=== PATIENT | female | born 1950 | race Caucasian/White ===

== ENCOUNTER 2019-03-18 10:42 | Emergency (ER) | payer MEDICARE, OTHER ==
[2019-03-18] MEDS ORDERED: ACETAMINOPHEN 325 MG TABLET PO ONE (11:09)
--- NOTE | 2019-03-18 11:13 | ER Document Report ---
ED Medical Screen (RME) - General Chief Complaint: Fall Injury Stated Complaint: FALL,LEFT HIP PAIN Time Seen by Provider: 03/18/19 11:05 TRAVEL OUTSIDE OF THE [place] IN LAST 30 DAYS: No - HPI Notes: 03/18/19 11:10 Patient is a 68-year-old female with a history of hypertension and hypothyroidism who presents complaining of left hip pain and left foot pain status post fall prior to arrival. Patient is not on any anticoagulation. Patient states that she was working outside when she tripped over her house and fell onto a wooden object with her left buttock then to the ground. Patient states that she did not hit her head or lose conscious. She has no other pains or discomfort aside from the foot and the left buttock/hip. Patient states that she has not been able to ambulate because of the pain. Denies drug allergies. Denies JACKSON, fever, neck pain, URI, CP, SOB, Abd pain, n/v/d, or rash. I have treated and performed a rapid initial assessment of this patient. A comprehensive ED assessment and evaluation of the patient, analysis of test results and completion of medical decision making process will be conducted by additional ED providers. PHYSICAL EXAMINATION: GENERAL: Well-appearing, well-nourished and in no acute distress. A&Ox4. Answers questions appropriately. Head: Atraumatic. No sotomayor sign. Neck: Full range of motion without any midline tenderness. LUNGS: Breath sounds clear to auscultation bilaterally and equal. No wheezes rales or rhonchi. HEART: Regular rate and rhythm without murmurs, rubs, gallops. Left hip: LROM. + moderate/severe tenderness to the left buttock/posterior hip to palp. N/V intact distal. Left foot: + tenderness to the lateral dorsal foot to palp. N/V intact distal. pulses 2+. Cap refill <3 seconds. + mild swelling dorsal distal foot. No bony tenderness to the ankle. FROM at the ankle. Achilles intact. - Related Data Allergies/Adverse Reactions: No Known Allergies Allergy (Unverified 03/18/19 10:45) Physical Exam - Vital signs Vitals: Temp Pulse Resp BP Pulse Ox 98.0 F 68 22 H 210/85 H 98 03/18/19 10:55 03/18/19 10:55 03/18/19 10:55 03/18/19 10:55 03/18/19 10:55 Course - Vital Signs Vital signs: Temp Pulse Resp BP Pulse Ox 98.0 F 68 22 H 210/85 H 98 03/18/19 10:55 03/18/19 10:55 03/18/19 10:55 03/18/19 10:55 03/18/19 10:55
[2019-03-18] MEDS ORDERED: MORPHINE SULFATE 10 MG/ML INJ IV ONE (11:17)
--- NOTE | 2019-03-18 12:17 | RADIOLOGY REPORT (SQ) ---
EXAM DESCRIPTION: FOOT LEFT COMPLETE COMPLETED DATE/TIME: 03/18/2019 11:56 am REASON FOR STUDY: pain dorsal lateral foot s/p fall COMPARISON: None. NUMBER OF VIEWS: Three views. TECHNIQUE: AP, lateral and oblique radiographic images acquired of the left foot. LIMITATIONS: None. FINDINGS: MINERALIZATION: Osteopenia. BONES: No acute fracture or dislocation. No worrisome bone lesions. JOINTS: No effusions. SOFT TISSUES: Soft tissue swelling about the dorsal lateral foot. OTHER: No other significant finding. IMPRESSION: No fracture or dislocation of the left foot. Soft tissue swelling. Consider MRI to mor e sensitively evaluate for fracture in the setting of osteopenia. TECHNICAL DOCUMENTATION: JOB ID: [id number] [employer]- All Rights Reserved Reading location - IP/workstation name: [email or web address]
--- NOTE | 2019-03-18 12:18 | RADIOLOGY REPORT (SQ) ---
EXAM DESCRIPTION: PELVIS AP COMPLETED DATE/TIME: 03/18/2019 11:56 am REASON FOR STUDY: left pain s/p fall COMPARISON: None. NUMBER OF VIEWS: One view TECHNIQUE: AP Pelvis LIMITATIONS: None. FINDINGS: MINERALIZATION: Normal. HIPS: No acute fracture or dislocation. No worrisome bone lesions. PELVIS AND SACRUM: No acute fracture or dislocation. No worrisome bone lesions. PUBIS AND ISCHIUM: No acute fracture. LOWER LUMBAR SPINE: No significant findings as visualized. SOFT TISSUES: No findings. OTHER: No other significant finding. IMPRESSION: No displaced fracture of the hips or pelvis in single AP view. Osteopenia. COMMENT: Pelvic fractures are often occult on plain radiographs. If strong clinical suspicion for f racture, recommend CT or MR. TECHNICAL DOCUMENTATION: JOB ID: [id number] [employer]- All Rights Reserved Reading location - IP/workstation name: [email or web address]
--- NOTE | 2019-03-18 13:10 | RADIOLOGY REPORT (SQ) ---
EXAM DESCRIPTION: CT LT LOWER EXTREMITY WITHOUT COMPLETED DATE/TIME: 03/18/2019 12:56 pm REASON FOR STUDY: left foot pain/trauma COMPARISON: None. TECHNIQUE: CT scan of the left foot performed without intravenous or oral contrast. Images reviewed with soft tissue and bone windows. Reconstructed coronal and sagittal MPR images reviewed. All lashawn ges stored on PACS. All CT scanners at this facility use dose modulation, iterative reconstruction, and/or weight based d osing when appropriate to reduce radiation dose to as low as reasonably achievable (ALARA). [facility]: Dose Right [facility]: CareDose [facility]: Dose Right [facility]: Teradose 4D [facility]: Smart Micro Interventional Devices RADIATION DOSE: CT Rad equipment meets quality standard of care and radiation dose reduction techniq ues were employed. CTDIvol: 4.1 mGy. DLP: 83 mGy-cm. mGy. LIMITATIONS: None. FINDINGS: There is very subtle angulation of the distal necks of the left 3rd and 4th metatarsals an d possible nondisplaced fracture lines (series 303, image 20, 16). No other fracture or dislocation. Mild osteopenia. Soft tissue swelling about the forefoot. IMPRESSION: There is very subtle angulation of the distal necks of the left 3rd and 4th metatarsals and possible nondisplaced fracture lines (series 303, image 20, 16). Correlate for acute point tende rness. No other fracture or dislocation. Mild osteopenia. Soft tissue swelling about the forefoot. TECHNICAL DOCUMENTATION: JOB ID: [id number] Quality ID # [id number]: Final reports with documentation of one or more dose reduction techniques (e.g., Au tomated exposure control, adjustment of the mA and/or kV according to patient size, use of iterative reconstruction technique) 2010 August- All Rights Reserved Reading location - IP/workstation name: [email or web address]
--- NOTE | 2019-03-18 14:01 | ER Document Report ---
ED Fall - General Chief Complaint: Fall Injury Stated Complaint: FALL,LEFT HIP PAIN Time Seen by Provider: 03/18/19 11:05 Primary Care Provider: MARIO BONILLA MD [ACTIVE STAFF] - Follow up as needed Notes: E Provider note: Patient is a 68-year-old female with a history of hypertension and hypothyroidism who presents complaining of left hip pain and left foot pain status post fall prior to arrival. Patient is not on any anticoagulation. Patient states that she was working outside when she tripped over her house and fell onto a wooden object with her left buttock then to the ground. Patient states that she did not hit her head or lose conscious. She has no other pains or discomfort aside from the foot and the left buttock/hip. Patient states that she has not been able to ambulate because of the pain. Denies drug allergies. Denies JACKSON, fever, neck pain, URI, CP, SOB, Abd pain, n/v/d, or rash. MY HPI: States she did trip over a garden hose, continues to deny loss of consciousness. States the pain in her left hip is somewhat relieved but she still has constant pain in her left foot. Patient had just received pain management as ordered by E provider. Past medical history: Hypertension, hyperlipidemia Medications: Losartan, carvedilol, atorvastatin Allergies: None TRAVEL OUTSIDE OF THE [place] IN LAST 30 DAYS: No - Related data Allergies/Adverse Reactions: No Known Allergies Allergy (Unverified 03/18/19 10:45) Past Medical History - General Information source: Patient - Social History Smoking Status: Unknown if Ever Smoked Chew tobacco use (# tins/day): No Frequency of alcohol use: None Drug Abuse: None Family History: Reviewed & Not Pertinent Patient has suicidal ideation: No Patient has homicidal ideation: No - Past Medical History Cardiac Medical History: Reports: Hx Hypercholesterolemia, Hx Hypertension Renal/ Medical History: Denies: Hx Peritoneal Dialysis Past Surgical History: Reports: Hx Abdominal Surgery - bariatric, hernia repair x 2, Hx Appendectomy, Hx Cholecystectomy, Hx Genitourinary Surgery - bladder x 2, Hx Hysterectomy, Hx Tubal Ligation Review of Systems - Review of Systems Constitutional: No symptoms reported. denies: Weakness EENT: No symptoms reported Cardiovascular: No symptoms reported Respiratory: No symptoms reported Gastrointestinal: No symptoms reported Genitourinary: No symptoms reported Female Genitourinary: No symptoms reported Musculoskeletal: See HPI Skin: See HPI Hematologic/Lymphatic: No symptoms reported Neurological/Psychological: denies: Confusion, Sensory change, Weakness, Numbness, Tingling Physical Exam - Vital signs Vitals: Temp Pulse Resp BP Pulse Ox 98.0 F 68 22 H 210/85 H 98 03/18/19 10:55 03/18/19 10:55 03/18/19 10:55 03/18/19 10:55 03/18/19 10:55 - Notes Notes: GENERAL: Alert, interacts well. No acute distress. HEAD: Normocephalic, atraumatic. EYES: Pupils equal, round, and reactive to light. Extraocular movements intact. ENT: Oral mucosa moist, tongue midline. NECK: Full range of motion. Supple. Trachea midline. LUNGS: Clear to auscultation bilaterally, no wheezes, rales, or rhonchi. No respiratory distress. HEART: Regular rate and rhythm. No murmur ABDOMEN: Soft, non-tender. Non-distended. Bowel sounds present in all 4 quadrants. EXTREMITIES: Moves all 4 extremities spontaneously. normal radial and dorsalis pedis pulses bilaterally. No cyanosis. Swelling noted on dorsal aspect of left foot, full range of motion all toes and left ankle, no pain in left ankle. Capillary refill less than 2 seconds distally left lower extremity. BACK: no cervical, thoracic, lumbar midline tenderness. No saddle anesthesia, normal distal neurovascular exam. NEUROLOGICAL: Alert and oriented x3. Normal speech. cranial nerves II through XII grossly intact PSYCH: Normal affect, normal mood. SKIN: Warm, dry, normal turgor. No rashes or lesions noted. No obvious areas of ecchymosis, erythema noted left hip or left buttocks. Course - Re-evaluation Re-evalutation: 03/18/19 13:59 Initial x-rays of patient's left hip and left foot revealed osteopenia, MRI suggested. Discussed this case with my attending Dr. Anamika Duran who suggest doing a CTA of the lower extremity, left foot specifically to rule out fracture. Patient CT did show a slight fracture. Discussed with patient these results and need for immobilization. Discussed use of immobilization boot and crutches. Discussed attempting to make her as little weight bearing as possible on the left lower extremity. Discussed following up with orthopedics, Dr. Bonilla. Patient voices understanding, stable for discharge. 03/18/19 14:13 Patient's blood pressure was noted to be elevated entire visit in the emergency department. Patient continues to deny hitting her head, headache, dizziness, weakness, chest pain, shortness of breath. States she watches her blood pressure at home regularly. States is typically 140s systolic. States she did take her at home medications this morning. I have discussed with her that I will give her another dose of her medications and that she should keep a close eye on her blood pressure at home. Also discussed making sure she follows up with her primary care provider. Patient voices understanding. - Vital Signs Vital signs: Temp Pulse Resp BP Pulse Ox 98.0 F 68 22 H 210/85 H 98 03/18/19 10:55 03/18/19 10:55 03/18/19 10:55 03/18/19 10:55 03/18/19 10:55 Discharge - Discharge Clinical Impression: Metatarsal bone fracture Qualifiers: Encounter type: initial encounter Metatarsal bone: fourth Fracture type: closed Fracture alignment: nondisplaced Laterality: left Qualified Code(s): S92.345A - Nondisplaced fracture of fourth metatarsal bone, left foot, initial encounter for closed fracture Condition: Stable Disposition: HOME, SELF-CARE Instructions: Foot Fracture ([facility]) Additional Instructions: As we discussed you have been seen and treated in the emergency department for a fracture of your third and fourth toe on your left foot. Please make sure you wear the boot for continued support. Please also use crutches as we discussed and try to limit your weightbearing in her left lower extremity. I have provided phone numbers for Dr. Bonilla, he has orthopedic you should follow-up with. Please also take [id number] Tylenol Motrin for generalized pain. Return to the emergency room for any other concerns. Forms: Elevated Blood Pressure Referrals: MARIO BONILLA MD [ACTIVE STAFF] - Follow up as needed
[2019-03-18] MEDS ORDERED: LOSARTAN POTASSIUM 50 MG TABLET PO ONE (14:12)
[2019-03-18] MEDS ORDERED: CARVEDILOL 6.25 MG TABLET PO ONE (14:12)
[2019-03-18 14:40] VITALS: BP 216/82
== END 2019-03-18 14:30 | disposition home or self-care (01) ==
LOC: ER 10:42
DX: S92.345A Nondisplaced fracture of fourth metatarsal bone, left foot, initial encounter for closed fracture (principal); M25.552 Pain in left hip; M79.672 Pain in left foot; W01.198A Fall on same level from slipping, tripping and stumbling with subsequent striking against other object, initial encounter; Y93.89 Activity, other specified; M85.872 Other specified disorders of bone density and structure, left ankle and foot; M85.88 Other specified disorders of bone density and structure, other site; I10 Essential (primary) hypertension; E78.5 Hyperlipidemia, unspecified; E78.00 Pure hypercholesterolemia, unspecified; Z79.899 Other long term (current) drug therapy
CPT/HCPCS: 99284; 96374; 73630; 72170; 73700; A9270 ×3; J2270